=== PATIENT | female | born 1950 | race Caucasian/White ===

== ENCOUNTER → 2019-04-04 | Outpatient (CLI) | payer OTHER, MEDICARE | LOC: NUC 10:12 | DX: M85.88 Other specified disorders of bone density and structure, other site (principal); M81.8 Other osteoporosis without current pathological fracture ==

== ENCOUNTER → 2020-06-25 | Outpatient (CLI) | payer OTHER, MEDICARE | LOC: NUC 06-16 14:58 | PROVIDERS: ATTEND Internal Medicine | DX: M85.89 Other specified disorders of bone density and structure, multiple sites (principal); M81.6 Localized osteoporosis [Lequesne]; Z78.0 Asymptomatic menopausal state ==